=== PATIENT | female | born 1965 | race Caucasian/White ===

== ENCOUNTER → 2023-04-21 08:21 | Outpatient (REF) | payer MEDICARE, OTHER, SELFPAY ==
[2023-04-21 09:17] LABS: Blood Urea Nitrogen 11 mg/dl (7-17); Calcium 9.6 mg/dl (8.4-10.2); Carbon Dioxide 24 mmol/L (22-30); Chloride 104 mmol/L (98-107); Glucose 111 mg/dl (70-99); Potassium 4.9 mmol/L (3.5-5.1); Sodium 137 mmol/L (135-145); eGFR > 60.00
[2023-04-21 12:29] LABS: Glycohemoglobin (HgbA1c) 6.8 % (4.0-5.6)
== END ==
LOC: REG 08:21
PROVIDERS: ATTENDING PHYSICIAN Emergency Medicine
DX: E11.69 Type 2 diabetes mellitus with other specified complication (principal); Z11.1 Encounter for screening for respiratory tuberculosis
CPT/HCPCS: 36415; 80048; 83036; 86480

== ENCOUNTER → 2023-04-25 06:32 | Outpatient (REF) | payer MEDICARE, OTHER, SELFPAY ==
[2023-04-28 03:47] LABS: Quantiferon Mitogen minus NIL 9.07 IU/mL; Quantiferon NIL 0.02 IU/mL; Quantiferon Plus TB2 minus NIL 0.01 IU/mL (0.00-0.34); Quantiferon TB Gold Plus Negative (Negative)
== END ==
LOC: REG 06:32
PROVIDERS: ATTENDING PHYSICIAN Emergency Medicine
DX: Z11.1 Encounter for screening for respiratory tuberculosis (principal)
CPT/HCPCS: 86480

== ENCOUNTER → 2023-07-19 09:14 | Outpatient (REF) | payer MEDICARE, OTHER, SELFPAY ==
[2023-07-19 13:01] LABS: Glycohemoglobin (HgbA1c) 6.5 % (4.0-5.6)
[2023-07-19 13:09] LABS: ALT (SGPT) 89 U/L (0-35); AST (SGOT) 88 U/L (14-36); Albumin 4.4 g/dl (3.5-5.0); Alkaline Phosphatase 111 U/L (38-126); Blood Urea Nitrogen 15 mg/dl (7-17); Calcium 9.4 mg/dl (8.4-10.2); Carbon Dioxide 26 mmol/L (22-30); Chloride 102 mmol/L (98-107); Glucose 95 mg/dl (70-99); HDL Cholesterol 41 mg/dl; LDL Cholesterol, Calculated 153 mg/dl; Potassium 5.1 mmol/L (3.5-5.1); Sodium 136 mmol/L (135-145); Total Bilirubin 0.4 mg/dl (0.2-1.3); Total Cholesterol 232 mg/dl (50-199); Total Protein 7.2 g/dl (6.3-8.2); Triglyceride 193 mg/dl (10-149); Very Low Density Lipoprotein 38 mg/dl (0-30); eGFR > 60.00
[2023-07-19 13:18] LABS: Microalbumin, Random Urine 3.8 mg/dl (0.6-1.7)
[2023-07-19 19:12] LABS: Microalbumin/creatinine Ratio 8.3 mg/g
== END ==
LOC: HWWDC 09:14
PROVIDERS: ATTENDING PHYSICIAN Nurse Practitioner Adult Health; FAMILY PHYSICIAN Emergency Medicine; REFERRING PHYSICIAN Registered Nurse
DX: Z12.31 Encounter for screening mammogram for malignant neoplasm of breast (principal); E78.2 Mixed hyperlipidemia; E11.49 Type 2 diabetes mellitus with other diabetic neurological complication; R94.31 Abnormal electrocardiogram [ECG] [EKG]; Z79.899 Other long term (current) drug therapy
CPT/HCPCS: 36415; 77063; 77067; 80053; 80061; 82043; 82570; 83036; 93005

== ENCOUNTER → 2023-07-27 11:04 | Outpatient (REF) | payer MEDICARE, OTHER, SELFPAY | LOC: HWRAD 11:04 | PROVIDERS: ATTENDING PHYSICIAN Nurse Practitioner Adult Health; FAMILY PHYSICIAN Emergency Medicine | DX: R10.2 Pelvic and perineal pain (principal) | CPT/HCPCS: 76830; 76856 ==

== ENCOUNTER → 2023-10-31 10:52 | Outpatient (REF) | payer MEDICARE, OTHER, SELFPAY ==
[2023-10-31 16:09] LABS: ALT (SGPT) 75 U/L (0-35); AST (SGOT) 58 U/L (14-36); Albumin 4.6 g/dl (3.5-5.0); Alkaline Phosphatase 75 U/L (38-126); Blood Urea Nitrogen 12 mg/dl (7-17); Calcium 9.9 mg/dl (8.4-10.2); Carbon Dioxide 24 mmol/L (22-30); Chloride 99 mmol/L (98-107); Glucose 76 mg/dl (70-99); Potassium 4.5 mmol/L (3.5-5.1); Sodium 134 mmol/L (135-145); Total Bilirubin 0.4 mg/dl (0.2-1.3); Total Protein 6.9 g/dl (6.3-8.2); eGFR > 60.00
[2023-11-01 10:53] LABS: Glycohemoglobin (HgbA1c) 6.1 % (4.0-5.6)
== END ==
LOC: HWRAD 10:52
PROVIDERS: ATTENDING PHYSICIAN Nurse Practitioner Adult Health; FAMILY PHYSICIAN Emergency Medicine; REFERRING PHYSICIAN Specialist
DX: N83.209 Unspecified ovarian cyst, unspecified side (principal); E11.49 Type 2 diabetes mellitus with other diabetic neurological complication; R19.7 Diarrhea, unspecified
CPT/HCPCS: 76830; 76856; 80053; 83036; 87328; 87329

== ENCOUNTER → 2023-12-27 09:45 | Outpatient (REF) | payer MEDICARE, OTHER, SELFPAY ==
[2023-12-27 12:28] LABS: % Basophils 0.8 % (0-2); % Eosinophils 1.7 % (0-6); % Immature Granulocytes 0.5 % (0-0.5); % Lymphocytes 48.6 % (20.5-51.1); % Monocytes 6.3 % (1.7-9.3); % Neutrophils 42.1 % (42.2-75.2); Absolute Basophils 0.1 10^3/uL (0-0.2); Absolute Eosinophils 0.1 10^3/uL (0-0.7); Absolute Lymphocytes 3.6 10^3/uL (1.2-3.4); Absolute Monocytes 0.5 10^3/uL (0.1-0.6); Absolute Neutrophils 3.2 10^3/uL (1.4-6.5); Hematocrit 39.1 % (37.0-47.0); Mean Corp Hgb Conc. 35.8 g/dL (33.0-37.0); Mean Corpuscular Hgb 33.2 pg (27.0-31.0); Mean Corpuscular Volume 92.7 fL (81.0-99.0); Mean Platelet Volume 9.1 fL (7.4-10.4); Nucleated Red Blood Cells % 0 %; Platelet Count 309 10^3/uL (130-400); Red Blood Cell Count 4.22 10^6/uL (4.20-5.40); Red Cell Dist. Width 12.6 % (11.5-14.5); White Blood Cell Count 7.5 10^3/uL (4.8-10.8)
[2023-12-27 12:46] LABS: ALT (SGPT) 77 U/L (0-35); AST (SGOT) 55 U/L (14-36); Albumin 4.8 g/dl (3.5-5.0); Alkaline Phosphatase 86 U/L (38-126); Blood Urea Nitrogen 11 mg/dl (7-17); Calcium 10.1 mg/dl (8.4-10.2); Carbon Dioxide 24 mmol/L (22-30); Chloride 101 mmol/L (98-107); Glucose 77 mg/dl (70-99); Sodium 137 mmol/L (135-145); Total Bilirubin 0.3 mg/dl (0.2-1.3); Total Protein 7.1 g/dl (6.3-8.2); eGFR > 60.00
[2023-12-27 13:04] LABS: APTT 27.2 Sec (23.4-35.0); INR 1.05; PT 13.8 Sec (11.4-14.6)
== END ==
LOC: HWRAD 09:45
PROVIDERS: ATTENDING PHYSICIAN Physician Assistant; FAMILY PHYSICIAN Emergency Medicine
DX: K76.0 Fatty (change of) liver, not elsewhere classified (principal); K74.69 Other cirrhosis of liver
CPT/HCPCS: 36415; 76700; 80053; 82105; 85025; 85610; 85730

== ENCOUNTER → 2024-02-26 09:26 | Outpatient (REF) | payer MEDICARE, OTHER, SELFPAY ==
[2024-02-26 13:25] LABS: % Basophils 0.8 % (0-2); % Eosinophils 1.1 % (0-6); % Immature Granulocytes 0.3 % (0-0.5); % Lymphocytes 42.1 % (20.5-51.1); % Monocytes 7.5 % (1.7-9.3); % Neutrophils 48.2 % (42.2-75.2); Absolute Basophils 0.1 10^3/uL (0-0.2); Absolute Eosinophils 0.1 10^3/uL (0-0.7); Absolute Lymphocytes 2.6 10^3/uL (1.2-3.4); Absolute Monocytes 0.5 10^3/uL (0.1-0.6); Hematocrit 39.2 % (37.0-47.0); Hemoglobin 13.7 g/dL (12.0-16.0); Mean Corp Hgb Conc. 34.9 g/dL (33.0-37.0); Mean Corpuscular Hgb 33.7 pg (27.0-31.0); Mean Corpuscular Volume 96.6 fL (81.0-99.0); Mean Platelet Volume 9.2 fL (7.4-10.4); Nucleated Red Blood Cells % 0 %; Platelet Count 268 10^3/uL (130-400); Red Blood Cell Count 4.06 10^6/uL (4.20-5.40); Red Cell Dist. Width 12.9 % (11.5-14.5); White Blood Cell Count 6.1 10^3/uL (4.8-10.8)
[2024-02-26 13:32] LABS: Urine Albumin Negative (Neg - Trace); Urine Bilirubin 1+ (Negative); Urine Character Clear (Clear); Urine Color Yellow; Urine Glucose Negative (Negative); Urine Ketone Negative (Negative); Urine Leukocyte Negative (Negative); Urine Nitrite Negative (Negative); Urine Occult Blood Negative (Negative); Urine Urobilinogen 1+ (Neg - 1+)
[2024-02-26 13:56] LABS: Glycohemoglobin (HgbA1c) 5.6 % (4.0-5.6)
[2024-02-26 14:03] LABS: ALT (SGPT) 69 U/L (0-35); AST (SGOT) 44 U/L (14-36); Albumin 4.7 g/dl (3.5-5.0); Alkaline Phosphatase 75 U/L (38-126); Blood Urea Nitrogen 12 mg/dl (7-17); Calcium 9.5 mg/dl (8.4-10.2); Carbon Dioxide 28 mmol/L (22-30); Chloride 101 mmol/L (98-107); Glucose 77 mg/dl (70-99); HDL Cholesterol 45 mg/dl; LDL Cholesterol, Calculated 143 mg/dl; Sodium 140 mmol/L (135-145); Total Bilirubin 0.3 mg/dl (0.2-1.3); Total Cholesterol 224 mg/dl (50-199); Total Protein 6.9 g/dl (6.3-8.2); Triglyceride 184 mg/dl (10-149); Very Low Density Lipoprotein 36 mg/dl (0-30); eGFR > 60.00
[2024-02-26 14:20] LABS: Vitamin D, 25-OH*** 33.8 ng/mL (30-80)
[2024-02-26 14:34] LABS: TSH 2.69 uIU/ml (0.47-4.68)
[2024-02-26 19:01] LABS: Hepatitis B Surface Antigen Negative (Negative)
[2024-02-26 19:18] LABS: Hepatitis B Core Ab, Total Negative (Negative)
[2024-02-26 20:26] LABS: Hepatitis B Surface Antibody Negative
[2024-02-27 11:40] LABS: Syphilis/T. pallidum Ab Reflex Negative (Negative)
[2024-02-29 09:53] LABS: HIV-1 Quan NAAT Interpretation Not Detected (Not Detected); HIV-1 Quant NAAT (copies/ml) Not Detected cpy/mL; HIV-1 Quant NAAT (log copy/mL) Not Detected log cpy/mL
== END ==
LOC: MRI 3T 09:26
PROVIDERS: ATTENDING PHYSICIAN Physician Assistant; FAMILY PHYSICIAN Emergency Medicine; OTHER PHYSICIAN Internal Medicine Infectious Disease
DX: K76.89 Other specified diseases of liver (principal); E11.49 Type 2 diabetes mellitus with other diabetic neurological complication; K74.69 Other cirrhosis of liver; E66.09 Other obesity due to excess calories; E78.2 Mixed hyperlipidemia; R73.9 Hyperglycemia, unspecified; E03.9 Hypothyroidism, unspecified; E55.9 Vitamin D deficiency, unspecified; Z20.5 Contact with and (suspected) exposure to viral hepatitis; Z11.59 Encounter for screening for other viral diseases; Z20.2 Contact with and (suspected) exposure to infections with a predominantly sexual mode of transmission; B20 Human immunodeficiency virus [HIV] disease
CPT/HCPCS: 36415; 74183; 80053; 80061; 81003; 82306; 83036; 84443; 85025; 86704; 86706; 86780; 87340; 87491; 87536; 87591; A9575

== ENCOUNTER → 2024-06-18 09:21 | Outpatient (REF) | payer MEDICARE, OTHER, SELFPAY ==
[2024-06-18 13:06] LABS: ALT (SGPT) 32 U/L (0-35); AST (SGOT) 31 U/L (14-36); Albumin 4.5 g/dl (3.5-5.0); Alkaline Phosphatase 82 U/L (38-126); Blood Urea Nitrogen 14 mg/dl (7-17); Calcium 9.2 mg/dl (8.4-10.2); Carbon Dioxide 25 mmol/L (22-30); Chloride 103 mmol/L (98-107); Glucose 87 mg/dl (70-99); HDL Cholesterol 45 mg/dl; LDL Cholesterol, Calculated 62 mg/dl; Potassium 4.7 mmol/L (3.5-5.1); Sodium 139 mmol/L (135-145); Total Bilirubin 0.5 mg/dl (0.2-1.3); Total Cholesterol 140 mg/dl (50-199); Total Protein 6.6 g/dl (6.3-8.2); Triglyceride 168 mg/dl (10-149); Very Low Density Lipoprotein 33 mg/dl (0-30); eGFR > 60.00
[2024-06-19 10:13] LABS: Glycohemoglobin (HgbA1c) 5.5 % (4.0-5.6)
[2024-06-19 14:55] LABS: CD4 % of Cells Analyzed 48 % (32-64); CD4 Absolute Count 1288 cells/uL (430-1800)
== END ==
LOC: HWLAB 09:21
PROVIDERS: ATTENDING PHYSICIAN Internal Medicine Infectious Disease; FAMILY PHYSICIAN Emergency Medicine
DX: E11.49 Type 2 diabetes mellitus with other diabetic neurological complication (principal); E11.69 Type 2 diabetes mellitus with other specified complication; E66.09 Other obesity due to excess calories; E78.2 Mixed hyperlipidemia; B20 Human immunodeficiency virus [HIV] disease
CPT/HCPCS: 36415; 80053; 80061; 83036; 86361

== ENCOUNTER → 2024-07-30 12:27 | Outpatient (REF) | payer MEDICARE, OTHER, SELFPAY | LOC: HWWDC 12:27 | PROVIDERS: ATTENDING PHYSICIAN Emergency Medicine; REFERRING PHYSICIAN Obstetrics & Gynecology Gynecology | DX: Z12.31 Encounter for screening mammogram for malignant neoplasm of breast (principal) | CPT/HCPCS: 77063; 77067 ==

== ENCOUNTER → 2024-07-31 09:28 | Outpatient (REF) | payer MEDICARE, OTHER, SELFPAY ==
[2024-07-31 12:23] LABS: % Basophils 0.6 % (0-2); % Eosinophils 3.3 % (0-6); % Immature Granulocytes 0.1 % (0-0.5); % Lymphocytes 30.8 % (20.5-51.1); % Monocytes 6.2 % (1.7-9.3); Absolute Eosinophils 0.2 10^3/uL (0-0.7); Absolute Lymphocytes 2.1 10^3/uL (1.2-3.4); Absolute Monocytes 0.4 10^3/uL (0.1-0.6); Hemoglobin 13.8 g/dL (12.0-16.0); Mean Corp Hgb Conc. 35.4 g/dL (33.0-37.0); Mean Corpuscular Hgb 34.4 pg (27.0-31.0); Mean Corpuscular Volume 97.3 fL (81.0-99.0); Mean Platelet Volume 9.8 fL (7.4-10.4); Nucleated Red Blood Cells % 0 %; Platelet Count 224 10^3/uL (130-400); Red Blood Cell Count 4.01 10^6/uL (4.20-5.40); Red Cell Dist. Width 12.3 % (11.5-14.5); White Blood Cell Count 6.8 10^3/uL (4.8-10.8)
[2024-07-31 12:38] LABS: ALT (SGPT) 45 U/L (0-35); AST (SGOT) 36 U/L (14-36); Albumin 4.7 g/dl (3.5-5.0); Alkaline Phosphatase 94 U/L (38-126); Blood Urea Nitrogen 13 mg/dl (7-17); Calcium 9.1 mg/dl (8.4-10.2); Carbon Dioxide 28 mmol/L (22-30); Chloride 106 mmol/L (98-107); Glucose 95 mg/dl (70-99); HDL Cholesterol 50 mg/dl; Iron 83 ug/dl (37-170); LDL Cholesterol, Calculated 78 mg/dl; Potassium 4.4 mmol/L (3.5-5.1); Sodium 142 mmol/L (135-145); Total Bilirubin 0.6 mg/dl (0.2-1.3); Total Cholesterol 144 mg/dl (50-199); Total Protein 6.7 g/dl (6.3-8.2); Triglyceride 80 mg/dl (10-149); Very Low Density Lipoprotein 16 mg/dl (0-30); eGFR > 60.00
[2024-07-31 12:54] LABS: Glycohemoglobin (HgbA1c) 5.2 % (4.0-5.6)
[2024-07-31 13:03] LABS: Percent Saturation 25 % (20-50); Total Iron Binding Capacity 322 ug/dl (265-497)
[2024-07-31 13:36] LABS: Vitamin D, 25-OH*** 34.3 ng/mL (30-80)
[2024-07-31 13:50] LABS: TSH Reflex To Free T4 2.06 uIU/ml (0.47-4.68)
[2024-07-31 13:54] LABS: Ferritin 21.6 ng/ml (11.1-264.0)
[2024-07-31 14:25] LABS: Folate > 20.0 ng/ml (2.76-20); Vitamin B12 832 pg/ml (239-931)
== END ==
LOC: HWLAB 09:28
PROVIDERS: ATTENDING PHYSICIAN Registered Nurse; FAMILY PHYSICIAN Emergency Medicine
DX: E78.2 Mixed hyperlipidemia (principal); K76.0 Fatty (change of) liver, not elsewhere classified; L65.9 Nonscarring hair loss, unspecified; Z04.6 Encounter for general psychiatric examination, requested by authority; E78.5 Hyperlipidemia, unspecified; Z79.899 Other long term (current) drug therapy; Z13.29 Encounter for screening for other suspected endocrine disorder; D64.9 Anemia, unspecified; E55.9 Vitamin D deficiency, unspecified; E53.8 Deficiency of other specified B group vitamins; D51.9 Vitamin B12 deficiency anemia, unspecified; R73.09 Other abnormal glucose; D52.9 Folate deficiency anemia, unspecified
CPT/HCPCS: 36415; 80053; 80061; 82306; 82607; 82728; 82746; 83036; 83540; 83550; 84443; 85025

== ENCOUNTER → 2024-09-09 10:10 | Outpatient (REF) | payer MEDICARE, OTHER, SELFPAY ==
[2024-09-09 14:36] LABS: TSH Reflex To Free T4 2.22 uIU/ml (0.47-4.68)
== END ==
LOC: HWLAB 10:10
PROVIDERS: ATTENDING PHYSICIAN Emergency Medicine
DX: L65.9 Nonscarring hair loss, unspecified (principal)
CPT/HCPCS: 36415; 84443

== ENCOUNTER → 2025-01-07 10:40 | Outpatient (REF) | payer MEDICARE, OTHER, SELFPAY | LOC: HWRAD 10:40 | PROVIDERS: ATTENDING PHYSICIAN Registered Nurse; FAMILY PHYSICIAN Nurse Practitioner Family; REFERRING PHYSICIAN Internal Medicine | DX: Z87.891 Personal history of nicotine dependence (principal); R94.31 Abnormal electrocardiogram [ECG] [EKG] | CPT/HCPCS: 71271; 93005 ==

== ENCOUNTER → 2025-03-10 10:22 | Outpatient (REF) | payer MEDICARE, OTHER, SELFPAY ==
[2025-03-10 12:42] LABS: INR 1.05; PT 13.8 Sec (11.4-14.6)
[2025-03-10 12:43] LABS: APTT 28.5 Sec (23.4-35.0)
[2025-03-10 12:50] LABS: Hematocrit 38.7 % (37.0-47.0); Hemoglobin 13.6 g/dL (12.0-16.0); Mean Corp Hgb Conc. 35.1 g/dL (33.0-37.0); Mean Corpuscular Volume 96.0 fL (81.0-99.0); Platelet Count 262 10^3/uL (130-400); Red Cell Dist. Width 11.9 % (11.5-14.5)
[2025-03-10 13:16] LABS: ALT (SGPT) 38 U/L (0-35); AST (SGOT) 36 U/L (14-36); Albumin 4.5 g/dl (3.5-5.0); Alkaline Phosphatase 80 U/L (38-126); Blood Urea Nitrogen 16 mg/dl (7-17); Calcium 9.2 mg/dl (8.4-10.2); Carbon Dioxide 28 mmol/L (22-30); Chloride 101 mmol/L (98-107); Glucose 80 mg/dl (70-99); HDL Cholesterol 42 mg/dl; LDL Cholesterol, Calculated 100 mg/dl; Potassium 4.6 mmol/L (3.5-5.1); Sodium 135 mmol/L (135-145); Total Protein 6.8 g/dl (6.3-8.2); Very Low Density Lipoprotein 11 mg/dl (0-30); eGFR 58.61
[2025-03-10 13:51] LABS: Microalb - Urine Creatinine 32.200 mg/dl
[2025-03-10 13:58] LABS: Microalbumin, Random Urine < 0.6 mg/dl (0.6-1.7)
[2025-03-10 14:03] LABS: Glycohemoglobin (HgbA1c) 5.2 % (4.0-5.9)
== END ==
LOC: HWLAB 10:22
PROVIDERS: ATTENDING PHYSICIAN Specialist; FAMILY PHYSICIAN Nurse Practitioner Family
DX: E78.2 Mixed hyperlipidemia (principal); Z01.89 Encounter for other specified special examinations; E11.69 Type 2 diabetes mellitus with other specified complication; K76.0 Fatty (change of) liver, not elsewhere classified
CPT/HCPCS: 36415; 80053; 80061; 82043; 82570; 83036; 84443; 85027; 85610; 85730